=== PATIENT | female | born 1985 | race Caucasian/White ===

== ENCOUNTER 2021-08-16 18:31 | Emergency (ER) | payer MEDICAID ==
[~2021-08-16] VITALS: Ht 165.1 cm; Wt 145.4 kg
[2021-08-16] MEDS ORDERED: hydrocortisone sod succ/PF 250mg/2ml inj. IV ONE (19:10)
[2021-08-16] MEDS ORDERED: hydrocortisone sod succ/PF 100mg/2ml inj. IV ONE (19:30)
[2021-08-16 20:49] LABS: ALANINE AMINOTRANSFERASE 18 U/L (12-78); ALBUMIN 3.4 G/DL (3.4-5.0); ALBUMIN/GLOBULIN RATIO 0.9 (1.1-1.5); ALKALINE PHOSPHATASE 90 IU/L (46-116); ANION GAP 11 (8-16); ASPARTATE AMINO TRANSFERASE 15 U/L (10-37); BASOPHILS # (AUTO) 0.1 X10'3 (0-0.2); BASOPHILS % (AUTO) 0.6 % (0-1); BILIRUBIN,TOTAL 0.2 MG/DL (0.1-1.0); BLOOD UREA NITROGEN 9 MG/DL (7-18); BUN/CREATININE RATIO 6.3 (6.6-38.0); CALCIUM 8.5 MG/DL (8.5-10.1); CHLORIDE 110 MMOL/L (99-107); CREATININE 1.43 MG/DL (0.40-0.90); EOSINOPHILS # (AUTO) 0.1 X10'3 (0-0.9); EOSINOPHILS % (AUTO) 1.5 % (0-6); GLUCOSE 102 MG/DL (70-104); HEMATOCRIT 36.5 % (35.0-45.0); HEMOGLOBIN 12.3 g/dl (12.0-16.0); LYMPHOCYTES # (AUTO) 4.1 X10'3 (1.1-4.8); LYMPHOCYTES % (AUTO) 48.2 % (21-51); MEAN CORPUSCULAR HEMOGLOBIN 28.2 PG (27.0-31.0); MEAN CORPUSCULAR HGB CONC 33.8 g/dL (33.0-36.5); MEAN CORPUSCULAR VOLUME 83.4 FL (78-98); MEAN PLATELET VOLUME 8.1 FL (7.4-10.4); MONOCYTES # (AUTO) 0.6 X10'3 (0-0.9); MONOCYTES % (AUTO) 6.8 % (2-12); NEUTROPHILS # (AUTO) 3.6 X10'3 (1.8-7.7); NEUTROPHILS % (AUTO) 42.9 % (42-75); PLATELET COUNT 270 X10'3 (140-440); POTASSIUM 3.6 MMOL/L (3.5-5.1); RED BLOOD COUNT 4.37 X10'6 (4.20-5.60); RED CELL DISTRIBUTION WIDTH 15.3 % (11.5-14.5); SODIUM 145 MMOL/L (135-145); TOTAL CARBON DIOXIDE 24.5 MMOL/L (24-32); TOTAL PROTEIN 7.3 G/DL (6.4-8.2); WHITE BLOOD COUNT 8.4 X10'3 (4.5-11.0); eGFR 41 ML/MIN
[2021-08-16 21:36] VITALS: BP 140/81
[2021-08-16] MEDS ORDERED: iohexol 300mg/ml 100ml inj. ONE (22:36)
[2021-08-16] MEDS ORDERED: morphine 4 MG/ML inj SYRINge IV ONE (22:50)
[2021-08-16] MEDS ORDERED: ondansetron/PF 4mg/2ml inj IV ONE (22:50)
[2021-08-16] MEDS ORDERED: normal saline 1000ml 1,000 ML IV ONE (22:55)
[2021-08-17] MEDS ORDERED: ONDA4TAB6 PO (00:12)
== END 2021-08-17 00:42 | disposition home or self-care (01) ==
LOC: ER 18:32
DX: B34.9 Viral infection, unspecified (principal); Z20.822 Contact with and (suspected) exposure to COVID-19; E27.1 Primary adrenocortical insufficiency; Z88.8 Allergy status to other drugs, medicaments and biological substances; Z79.899 Other long term (current) drug therapy
CPT/HCPCS: 36415; 71045; 74177; 80053; 82533; 82948; 83605; 84145; 85025; 87635; 96361; 96374; 96375; 99285; C9803; J1720; J2270; J2405; J7030; Q9967

== ENCOUNTER 2021-08-20 12:51 | Emergency (ER) | payer MEDICARE, MEDICAID ==
[~2021-08-20] VITALS: Ht 175.3 cm; Wt 145.4 kg
[~2021-08-20 12:51] MED LIST: ONDA4TAB6 PO
[2021-08-20] MEDS ORDERED: morphine 4 MG/ML inj SYRINge IV ONE ×3 (14:25→19:15)
[2021-08-20] MEDS ORDERED: normal saline 1000ml 1,000 ML IV ONE (14:25)
[2021-08-20] MEDS ORDERED: iohexol 300mg/ml 100ml inj. ONE (14:49)
[2021-08-20 15:13] LABS: BASOPHILS % (AUTO) 0.4 % (0-1); EOSINOPHILS # (AUTO) 0.1 X10'3 (0-0.9); EOSINOPHILS % (AUTO) 0.5 % (0-6); HEMATOCRIT 38.6 % (35.0-45.0); HEMOGLOBIN 12.6 g/dl (12.0-16.0); LYMPHOCYTES # (AUTO) 2.1 X10'3 (1.1-4.8); LYMPHOCYTES % (AUTO) 19.4 % (21-51); MEAN CORPUSCULAR HEMOGLOBIN 26.8 PG (27.0-31.0); MEAN CORPUSCULAR HGB CONC 32.6 g/dL (33.0-36.5); MEAN CORPUSCULAR VOLUME 82.1 FL (78-98); MEAN PLATELET VOLUME 8.1 FL (7.4-10.4); MONOCYTES # (AUTO) 0.5 X10'3 (0-0.9); MONOCYTES % (AUTO) 4.4 % (2-12); NEUTROPHILS # (AUTO) 8.3 X10'3 (1.8-7.7); NEUTROPHILS % (AUTO) 75.3 % (42-75); PLATELET COUNT 269 X10'3 (140-440); RED BLOOD COUNT 4.71 X10'6 (4.20-5.60); RED CELL DISTRIBUTION WIDTH 15.1 % (11.5-14.5)
[2021-08-20 15:21] LABS: ALANINE AMINOTRANSFERASE 12 U/L (12-78); ALBUMIN 3.4 G/DL (3.4-5.0); ALBUMIN/GLOBULIN RATIO 0.9 (1.1-1.5); ALKALINE PHOSPHATASE 84 IU/L (46-116); ANION GAP 8 (8-16); ASPARTATE AMINO TRANSFERASE 10 U/L (10-37); BILIRUBIN,DIRECT 0.1 MG/DL (0-0.3); BILIRUBIN,TOTAL 0.3 MG/DL (0.1-1.0); BLOOD UREA NITROGEN 12 MG/DL (7-18); BUN/CREATININE RATIO 9.1 (6.6-38.0); CALCIUM 8.5 MG/DL (8.5-10.1); CHLORIDE 106 MMOL/L (99-107); CREATININE 1.32 MG/DL (0.40-0.90); GLUCOSE 112 MG/DL (70-104); LIPASE 77 U/L (73-393); POTASSIUM 3.8 MMOL/L (3.5-5.1); SODIUM 136 MMOL/L (135-145); TOTAL CARBON DIOXIDE 21.6 MMOL/L (24-32); TOTAL PROTEIN 7.3 G/DL (6.4-8.2); eGFR 45 ML/MIN
[2021-08-20] MEDS ORDERED: dexamethasone sod phosphate 10mg/ml inj IV STA (15:45)
[2021-08-20] MEDS ORDERED: ondansetron/PF 4mg/2ml inj IV ONE (17:55)
[2021-08-20 20:15] LABS: URINE HCG NEGATIVE (NEG)
[2021-08-20 21:05] LABS: CLARITY,URINE CLEAR (Clear); COLOR,URINE STRAW (Yellow); PH,URINE 7.5 (4.8-8.0); UA COLLECTION TYPE CLN CATCH MIDSTREAM
[2021-08-20 21:06] LABS: GLUCOSE, URINE NEGATIVE (Neg); KETONES,URINE NEGATIVE (Neg); LEUKOCYTE ESTERASE ,URINE NEGATIVE (Neg); NITRITES, URINE NEGATIVE (Neg); OCCULT BLOOD,URINE NEGATIVE (Neg); PROTEIN,URINE NEGATIVE (Neg); UROBILINOGEN,URINE 0.2 E.U/dL (0.2-1.0)
[2021-08-20] MEDS ORDERED: PROC-8 PO (21:12)
[2021-08-20] MEDS ORDERED: SUCR1TAB PO (21:12)
[2021-08-20 21:36] VITALS: BP 141/94
== END 2021-08-20 21:37 | disposition home or self-care (01) ==
LOC: ER 12:51
DX: R10.13 Epigastric pain (principal); R11.10 Vomiting, unspecified; Z88.8 Allergy status to other drugs, medicaments and biological substances; Z79.899 Other long term (current) drug therapy
CPT/HCPCS: 36415; 80048; 80076; 81003; 81025; 83690; 85025; 96361; 96374; 96375; 96376; 99284; J1100; J2270; J2405; J7030; Q9967

== ENCOUNTER 2022-03-28 14:02 | Inpatient (IN) | payer MEDICARE, MEDICAID ==
[~2022-03-28] VITALS: Ht 175.3 cm; Wt 157.1 kg
[~2022-03-28 14:02] MED LIST changes: +PROC-8 PO; +SUCR1TAB PO
[2022-03-28] MEDS ORDERED: normal saline 1000ML IV soln IVB ONE ×2 (14:25→19:20)
[2022-03-28] MEDS ORDERED: ondansetron/PF 4mg/2ml inj IV ONE ×2 (14:30→18:00)
[2022-03-28 14:57] LABS: BASOPHILS # (AUTO) 0.1 X10'3 (0-0.2); BASOPHILS % (AUTO) 0.5 % (0-1); EOSINOPHILS % (AUTO) 0.2 % (0-6); HEMATOCRIT 37.6 % (35.0-45.0); LYMPHOCYTES # (AUTO) 2.5 X10'3 (1.1-4.8); LYMPHOCYTES % (AUTO) 19.7 % (21-51); MEAN CORPUSCULAR HEMOGLOBIN 25.3 PG (27.0-31.0); MEAN PLATELET VOLUME 8.1 FL (7.4-10.4); MONOCYTES # (AUTO) 0.5 X10'3 (0-0.9); MONOCYTES % (AUTO) 4.1 % (2-12); NEUTROPHILS # (AUTO) 9.7 X10'3 (1.8-7.7); NEUTROPHILS % (AUTO) 75.5 % (42-75); PLATELET COUNT 305 X10'3 (140-440); RED BLOOD COUNT 4.76 X10'6 (4.20-5.60); RED CELL DISTRIBUTION WIDTH 16.1 % (11.5-14.5); WHITE BLOOD COUNT 12.8 X10'3 (4.5-11.0)
[2022-03-28 15:10] LABS: ALANINE AMINOTRANSFERASE 10 U/L (12-78); ALBUMIN 3.8 G/DL (3.4-5.0); ALKALINE PHOSPHATASE 86 IU/L (46-116); ANION GAP 9 (8-16); ASPARTATE AMINO TRANSFERASE 14 U/L (10-37); BILIRUBIN,TOTAL 0.3 MG/DL (0.1-1.0); BLOOD UREA NITROGEN 11 MG/DL (7-18); BUN/CREATININE RATIO 10.2 (6.6-38.0); CALCIUM 9.1 MG/DL (8.5-10.1); CHLORIDE 106 MMOL/L (99-107); CREATININE 1.08 MG/DL (0.40-0.90); GLUCOSE 113 MG/DL (70-104); POTASSIUM 4.1 MMOL/L (3.5-5.1); SODIUM 139 MMOL/L (135-145); TOTAL PROTEIN 7.6 G/DL (6.4-8.2); eGFR 56 ML/MIN
[2022-03-28] MEDS ORDERED: niCARdipine I.V. 50 MG in normal saline 250ml IV soln 230 ML IV SCH (17:35)
--- NOTE | 2022-03-28 18:09 | NUR ---
USED STRAIGHT CATHETER TO OBTAIN URINE SAMPLE. NO URINE OUTPUT. EDMD CHANEL MADE AWARE AND ANOTHER LITER OF NORMAL SALINE HUNG DUE TO DEHYDRATION PER CHANEL.
[2022-03-28] MEDS: morphine 4 MG/ML inj SYRINge IV PRN ×2 (18:38→20:09)
--- NOTE | 2022-03-28 18:40 | NUR ---
URINE SAMPLE OBTAINED. CHANGED BED SHEETS BEDDING BECAME SOILED WITH URINE. PT NOW IN NEW CLEAN SHEETS AND PROVIDED NEW WARM BLANKET.
[2022-03-28 18:50] LABS: CLARITY,URINE CLEAR (Clear); COLOR,URINE YELLOW (Yellow); GLUCOSE, URINE NEGATIVE (Neg); KETONES,URINE NEGATIVE (Neg); LEUKOCYTE ESTERASE ,URINE NEGATIVE (Neg); NITRITES, URINE NEGATIVE (Neg); OCCULT BLOOD,URINE NEGATIVE (Neg); PH,URINE 6.5 (4.8-8.0); PROTEIN,URINE NEGATIVE (Neg); UROBILINOGEN,URINE 0.2 E.U/dL (0.2-1.0)
[2022-03-28 18:55] LABS: UA COLLECTION TYPE STRAIGHT CATH
[2022-03-28] MEDS ORDERED: hydrocortisone sod succ/PF 250mg/2ml inj. IV ONE (19:20)
--- NOTE | 2022-03-28 19:48 | NUR ---
CALLED PHARMACY FOR STEROID ORDER. THEY ARE PREPARING IT.
[2022-03-28] MEDS ORDERED: hydrocortisone sod succ/PF 100mg/2ml inj. IV ONE (19:50)
--- NOTE | 2022-03-28 20:03 | NUR ---
WALKED TO PHARMACY TO PHYSICIAN RECRUITER STEROID. PHARMACY THEN SAID THEY DID NOT NEED TO PREPARE IT AND "FIXED THE OMNICELL" SO I CAN DRAW IT.
[2022-03-28] MEDS ORDERED: FERR325T7 PO (21:20)
[2022-03-28] MEDS ORDERED: ROSU10TA28 PO (21:20)
[2022-03-28] MEDS ORDERED: LEVO-144 PO (21:20)
[2022-03-28] MEDS ORDERED: PREG150C46 PO (21:20)
[2022-03-28] MEDS ORDERED: PANT40TA54 PO (21:20)
[2022-03-28] MEDS ORDERED: CYCL5TAB PO (21:20)
[2022-03-28] MEDS ORDERED: BUSP15TA3 PO (21:20)
[2022-03-28] MEDS ORDERED: HYDR-4318 PO (21:20)
[2022-03-28] MEDS ORDERED: MIRA25TA PO (21:20)
[2022-03-28] MEDS ORDERED: HYDROCORTISONE PO (21:20)
[2022-03-28] MEDS ORDERED: HYDR-3686 PO (21:20)
[2022-03-28] MEDS ORDERED: DULO30CA52 PO (21:20)
[2022-03-28] MEDS ORDERED: ERGO500093 PO (21:20)
[2022-03-28] MEDS ORDERED: OMEG10006 PO (21:20)
[2022-03-28] MEDS ORDERED: PRAZ2CAP2 PO (21:20)
[2022-03-28] MEDS ORDERED: TRAZ-256 PO (21:20)
[2022-03-28] MEDS ORDERED: OXCA150T14 PO (21:20)
--- NOTE | 2022-03-28 23:25 | NUR ---
ATTEMPTED TO GIVE REPORT TO FLOOR RN. RN BUSY AND WILL CALL BACK IN 10 MINUTES.
--- NOTE | 2022-03-28 23:59 | NUR ---
Received report from ALEXANDRA Pepper. Patient arrived via gurneywith a bag of belongings, and her purse. Belongings included cell phone and laundry housekeeper, clothes were in the belongings bag, green sweater came up with patient. Patient is crying and complains of pain 9.10 on the pain scale. Pain will be addressed,
--- NOTE | 2022-03-29 00:26 | NUR ---
: [id number] MESSAGE: [id number]: Long, Germaine. Patient is crying, I do not have any medication orders. She is in pain, and nauseas. Also Do you want fluid running? Tashi 2084
[2022-03-29] MEDS ORDERED: magnesium Cl slow-release 64mg tablet PO PRN (00:30)
[2022-03-29] MEDS ORDERED: POTASSIUM BICARB 20meq eff tab 20 MEQ TABLET.EFF PO PRN ×2 (00:30)
[2022-03-29] MEDS ORDERED: magnesium 2GM in 50ml NS 50 ML IV PRN (00:30)
[2022-03-29] MEDS ORDERED: acetaminophen 325mg tablet PO PRN (00:30)
[2022-03-29] MEDS ORDERED: magnesium 4gm in 100ml NS 100 ML IV PRN (00:30)
[2022-03-29 00:39] VITALS: BP 140/67
[2022-03-29] MEDS ORDERED: TRAZ-251 PO (00:49)
[2022-03-29] MEDS ORDERED: HYDR-4318 PO (00:49)
[2022-03-29] MEDS: ondansetron/PF 4mg/2ml inj IV PRN ×4 (00:59→19:34)
[2022-03-29] MEDS: normal saline 1000ml 1,000 ML IV SCH ×3 (01:02→21:19)
[2022-03-29] MEDS: HYDROcodone/acetaminophen 5mg/325mg tablet PO PRN ×5 (01:08→21:18)
[2022-03-29 06:00] VITALS: BP 166/68
--- NOTE | 2022-03-29 06:18 | NUR ---
Problems reprioritized. Patient report given, questions answered & plan of care reviewed with ALEXANDRA Dillard. Patient is wanting to be discharged.
[2022-03-29 06:46] LABS: MAGNESIUM 2.2 MG/DL (1.5-2.4); POTASSIUM 4.2 MMOL/L (3.5-5.1)
[2022-03-29] MEDS: levoTHYROXINE 25mcg tablet PO SCH (07:47)
[2022-03-29] MEDS: OMEGA-3/DHA/EPA/FISH OIL 1 EACH CAPSULE.DR PO SCH (07:47)
[2022-03-29] MEDS: ferrous sulfate 325mg tablet PO SCH ×2 (07:48→19:35)
[2022-03-29] MEDS: pregabalin 75mg capsule PO SCH ×3 (07:48→21:17)
[2022-03-29] MEDS: docusate sod 100mg capsule PO SCH ×2 (07:49→19:35)
[2022-03-29] MEDS: busPIRone 15mg tablet PO SCH ×3 (07:49→20:40)
[2022-03-29] MEDS: cyclobenzaprine 10mg tablet PO SCH ×2 (07:49→19:35)
[2022-03-29] MEDS: atorvastatin 20mg tablet PO SCH (07:49)
[2022-03-29] MEDS: oxcarbazepine 150mg tablet PO SCH ×2 (07:49→19:35)
[2022-03-29] MEDS: pantoprazole 40mg Tablet.DR PO SCH ×2 (07:50→19:35)
[2022-03-29] MEDS: hydrOXYzine 25 MG tablet PO SCH (07:50)
[2022-03-29] MEDS: mirabegron 25mg ER tablet PO SCH (07:55)
[2022-03-29] MEDS: K and/or MAG REPLACEMENT MC SCH ×2 (08:00→19:06)
[2022-03-29 10:00] VITALS: BP 132/80
--- NOTE | 2022-03-29 13:18 | NUR ---
PAGER ID: [phone] MESSAGE: JULIO C BARRAGAN [id number] PATIENT ASKING TO HAVE A VISIT WITH YOU TO ASK SOME QUESTIONS AND ADDRESS SOME CONCERNS THANK YOU, MELI MORRIS
--- NOTE | 2022-03-29 13:50 | NUR ---
PAGER ID: [phone] MESSAGE: JULIO C BARRAGAN [id number] PATIENT REQUESTING TO HAVE A VISIT FROM YOU, HAS QUESTIONS AND CONCERNS THANK YOU, MELI MORRIS
[2022-03-29 18:00] VITALS: BP 111/62
[2022-03-29] MEDS: duloxetine 30mg CAPSULE.DR PO SCH (20:40)
[2022-03-29] MEDS: prazosin 1mg capsule PO SCH (20:40)
[2022-03-29] MEDS: traZODone 50mg tablet PO SCH (20:40)
[2022-03-29 22:00] VITALS: BP 119/65
[2022-03-30] MEDS: HYDROcodone/acetaminophen 5mg/325mg tablet PO PRN ×5 (01:53→20:21)
[2022-03-30] MEDS: ondansetron/PF 4mg/2ml inj IV PRN ×3 (01:53→14:14)
[2022-03-30 06:25] LABS: BASOPHILS # (AUTO) 0.1 X10'3 (0-0.2); BASOPHILS % (AUTO) 0.9 % (0-1); EOSINOPHILS # (AUTO) 0.1 X10'3 (0-0.9); EOSINOPHILS % (AUTO) 1.4 % (0-6); HEMATOCRIT 30.5 % (35.0-45.0); HEMOGLOBIN 9.8 g/dl (12.0-16.0); LYMPHOCYTES # (AUTO) 3.6 X10'3 (1.1-4.8); LYMPHOCYTES % (AUTO) 48.5 % (21-51); MEAN CORPUSCULAR HEMOGLOBIN 25.5 PG (27.0-31.0); MEAN CORPUSCULAR VOLUME 79.7 FL (78-98); MEAN PLATELET VOLUME 8.2 FL (7.4-10.4); MONOCYTES # (AUTO) 0.5 X10'3 (0-0.9); MONOCYTES % (AUTO) 6.3 % (2-12); NEUTROPHILS # (AUTO) 3.2 X10'3 (1.8-7.7); NEUTROPHILS % (AUTO) 42.9 % (42-75); PLATELET COUNT 217 X10'3 (140-440); RED BLOOD COUNT 3.83 X10'6 (4.20-5.60); WHITE BLOOD COUNT 7.5 X10'3 (4.5-11.0)
[2022-03-30 06:30] VITALS: BP 118/64
[2022-03-30 06:30] LABS: ALBUMIN 2.9 G/DL (3.4-5.0); ANION GAP 6 (8-16); BLOOD UREA NITROGEN 11 MG/DL (7-18); BUN/CREATININE RATIO 9.8 (6.6-38.0); CALCIUM 7.9 MG/DL (8.5-10.1); CHLORIDE 110 MMOL/L (99-107); CREATININE 1.12 MG/DL (0.40-0.90); GLUCOSE 97 MG/DL (70-104); SODIUM 141 MMOL/L (135-145); eGFR 54 ML/MIN
[2022-03-30] MEDS: normal saline 1000ml 1,000 ML IV SCH (07:35)
[2022-03-30] MEDS: cyclobenzaprine 10mg tablet PO SCH ×2 (07:36→20:18)
[2022-03-30] MEDS: oxcarbazepine 150mg tablet PO SCH ×2 (07:37→20:19)
[2022-03-30] MEDS: pregabalin 75mg capsule PO SCH ×3 (07:37→20:18)
[2022-03-30] MEDS: pantoprazole 40mg Tablet.DR PO SCH ×3 (07:37→20:18)
[2022-03-30] MEDS: OMEGA-3/DHA/EPA/FISH OIL 1 EACH CAPSULE.DR PO SCH (07:37)
[2022-03-30] MEDS: mirabegron 25mg ER tablet PO SCH (07:37)
[2022-03-30] MEDS: atorvastatin 20mg tablet PO SCH (07:38)
[2022-03-30] MEDS: ferrous sulfate 325mg tablet PO SCH ×2 (07:38→20:19)
[2022-03-30] MEDS: hydrOXYzine 25 MG tablet PO SCH (07:39)
[2022-03-30] MEDS: busPIRone 15mg tablet PO SCH ×3 (07:39→20:18)
[2022-03-30] MEDS: levoTHYROXINE 25mcg tablet PO SCH (07:39)
[2022-03-30] MEDS: docusate sod 100mg capsule PO SCH ×2 (07:39→20:18)
[2022-03-30] MEDS: K and/or MAG REPLACEMENT MC SCH ×2 (07:43→19:20)
[2022-03-30] MEDS ORDERED: hydrocortisone sod succ/PF 250mg/2ml inj. IV ONE (08:50)
[2022-03-30] MEDS ORDERED: hydrocortisone sod succ/PF 100mg/2ml inj. IV ONE (08:55)
[2022-03-30 10:00] VITALS: BP 121/73
[2022-03-30] MEDS: HYDROCORTISONE SOD SUCC IV SCH (10:27)
[2022-03-30] MEDS: NORMAL SALINE IV SCH (10:27)
[2022-03-30] MEDS: proCHLORperazine 10 MG/2 ml inj IV PRN ×2 (10:49→18:41)
--- NOTE | 2022-03-30 13:27 | NUR ---
messaged pharmacy multiple times regarding missing solu-cortef. was just now notified that this dosage is not carried.
--- NOTE | 2022-03-30 13:30 | NUR ---
PAGER ID: [phone] MESSAGE: [phone] Edith Alves: please call regarding solu-cortef loading dose. After asking for the missing med all day, pharmacist just now informed me that we do not carry a certain dose that's ordered. thanks, conrad [phone]
[2022-03-30 14:00] VITALS: BP 153/88
--- NOTE | 2022-03-30 17:43 | NUR ---
PAGER ID: [phone] MESSAGE: [id number] Edith Alves: patient has had a tubal ligation. does she still need a test? thanks, conrad [phone]
[2022-03-30 18:00] VITALS: BP 149/86
--- NOTE | 2022-03-30 18:13 | NUR ---
Problems reprioritized. Patient report given, questions answered & plan of care reviewed with ALEXANDRA Tristan.
[2022-03-30 19:57] LABS: H PYLORI ANTIBODY NEGATIVE (Neg)
[2022-03-30] MEDS: duloxetine 30mg CAPSULE.DR PO SCH (20:18)
[2022-03-30] MEDS: prazosin 1mg capsule PO SCH (20:18)
[2022-03-30] MEDS: traZODone 50mg tablet PO SCH (20:19)
[2022-03-30 22:00] VITALS: BP 137/80
[2022-03-30] MEDS ORDERED: LORazepam 0.5 MG tablet PO PRN (23:50)
--- NOTE | 2022-03-30 23:51 | NUR ---
Pt with c/o of increase feelings of being anxious and unable to fall asleep without fear of screaming in her sleep r/t history of night terrors when she was a kid. MD notified of this complaint with new order for one time dose of .5mg Ativan PO.
[2022-03-31] MEDS: ondansetron/PF 4mg/2ml inj IV PRN ×3 (00:12→17:08)
[2022-03-31] MEDS: HYDROcodone/acetaminophen 5mg/325mg tablet PO PRN ×4 (05:49→20:56)
[2022-03-31 06:30] VITALS: BP 124/74
[2022-03-31 07:21] LABS: EOSINOPHILS % (AUTO) 0.1 % (0-6); HEMATOCRIT 35.6 % (35.0-45.0); HEMOGLOBIN 11.4 g/dl (12.0-16.0); LYMPHOCYTES % (AUTO) 15.4 % (21-51); MEAN CORPUSCULAR HEMOGLOBIN 25.6 PG (27.0-31.0); MEAN CORPUSCULAR HGB CONC 32.1 g/dL (33.0-36.5); MEAN CORPUSCULAR VOLUME 79.7 FL (78-98); MEAN PLATELET VOLUME 8.1 FL (7.4-10.4); MONOCYTES % (AUTO) 3.8 % (2-12); NEUTROPHILS % (AUTO) 80.1 % (42-75); PLATELET COUNT 258 X10'3 (140-440); RED BLOOD COUNT 4.46 X10'6 (4.20-5.60); RED CELL DISTRIBUTION WIDTH 16.3 % (11.5-14.5); WHITE BLOOD COUNT 12.5 X10'3 (4.5-11.0)
[2022-03-31 07:22] LABS: BASOPHILS # (AUTO) 0.1 X10'3 (0-0.2); BASOPHILS % (AUTO) 0.6 % (0-1); LYMPHOCYTES # (AUTO) 1.9 X10'3 (1.1-4.8); MONOCYTES # (AUTO) 0.5 X10'3 (0-0.9)
[2022-03-31 07:46] LABS: ALBUMIN 3.3 G/DL (3.4-5.0); ANION GAP 6 (8-16); BLOOD UREA NITROGEN 10 MG/DL (7-18); BUN/CREATININE RATIO 8.9 (6.6-38.0); CALCIUM 8.5 MG/DL (8.5-10.1); CHLORIDE 109 MMOL/L (99-107); CREATININE 1.12 MG/DL (0.40-0.90); GLUCOSE 129 MG/DL (70-104); POTASSIUM 3.9 MMOL/L (3.5-5.1); SODIUM 141 MMOL/L (135-145); TOTAL CARBON DIOXIDE 26.1 MMOL/L (24-32); eGFR 54 ML/MIN
[2022-03-31] MEDS: K and/or MAG REPLACEMENT MC SCH ×2 (08:00→20:00)
[2022-03-31] MEDS: HYDROCORTISONE SOD SUCC IV SCH (08:35)
[2022-03-31] MEDS: NORMAL SALINE IV SCH (08:35)
[2022-03-31] MEDS: OMEGA-3/DHA/EPA/FISH OIL 1 EACH CAPSULE.DR PO SCH (08:36)
[2022-03-31] MEDS: levoTHYROXINE 25mcg tablet PO SCH (08:36)
[2022-03-31] MEDS: docusate sod 100mg capsule PO SCH ×2 (08:36→20:04)
[2022-03-31] MEDS: ferrous sulfate 325mg tablet PO SCH ×2 (08:36→20:04)
[2022-03-31] MEDS: pantoprazole 40mg Tablet.DR PO SCH (08:36)
[2022-03-31] MEDS: busPIRone 15mg tablet PO SCH ×3 (08:36→20:04)
[2022-03-31] MEDS: pregabalin 75mg capsule PO SCH ×3 (08:37→20:04)
[2022-03-31] MEDS: mirabegron 25mg ER tablet PO SCH (08:37)
[2022-03-31] MEDS: hydrOXYzine 25 MG tablet PO SCH (08:37)
[2022-03-31] MEDS: cyclobenzaprine 10mg tablet PO SCH ×2 (08:37→20:05)
[2022-03-31] MEDS: atorvastatin 20mg tablet PO SCH (08:37)
[2022-03-31] MEDS: oxcarbazepine 150mg tablet PO SCH ×2 (08:37→20:04)
[2022-03-31 10:17] VITALS: BP 146/86
[2022-03-31] MEDS: proCHLORperazine 10 MG/2 ml inj IV PRN ×2 (10:37→18:44)
[2022-03-31] MEDS ORDERED: LORazepam 0.5 MG tablet PO PRN (12:20)
[2022-03-31] MEDS ORDERED: LORazepam 2 mg/ml vial IV PRN (12:20)
[2022-03-31] MEDS: cefTRIAXone 1g/NS 100ml IVPB 100 ML IV SCH (13:43)
--- NOTE | 2022-03-31 17:25 | NUR ---
patient voided in hat 100ml. post void residual is 65ml.
[2022-03-31 18:00] VITALS: BP 135/81
--- NOTE | 2022-03-31 18:10 | NUR ---
Problems reprioritized. Patient report given, questions answered & plan of care reviewed with ALEXANDRA Wray.
[2022-03-31] MEDS: prazosin 1mg capsule PO SCH (20:04)
[2022-03-31] MEDS: traZODone 50mg tablet PO SCH (20:04)
[2022-03-31] MEDS: duloxetine 30mg CAPSULE.DR PO SCH (20:04)
[2022-03-31 22:00] VITALS: BP 137/81
[2022-04-01] MEDS: proCHLORperazine 10 MG/2 ml inj IV PRN ×3 (03:43→17:18)
[2022-04-01] MEDS: HYDROcodone/acetaminophen 5mg/325mg tablet PO PRN ×4 (03:44→18:16)
[2022-04-01 05:00] VITALS: BP 141/83
[2022-04-01 06:02] LABS: BASOPHILS # (AUTO) 0.1 X10'3 (0-0.2); BASOPHILS % (AUTO) 0.6 % (0-1); EOSINOPHILS % (AUTO) 0.1 % (0-6); HEMATOCRIT 32.3 % (35.0-45.0); HEMOGLOBIN 10.4 g/dl (12.0-16.0); LYMPHOCYTES # (AUTO) 2.2 X10'3 (1.1-4.8); LYMPHOCYTES % (AUTO) 18.4 % (21-51); MEAN CORPUSCULAR HEMOGLOBIN 25.2 PG (27.0-31.0); MEAN CORPUSCULAR HGB CONC 32.1 g/dL (33.0-36.5); MEAN CORPUSCULAR VOLUME 78.5 FL (78-98); MEAN PLATELET VOLUME 8.5 FL (7.4-10.4); MONOCYTES # (AUTO) 0.6 X10'3 (0-0.9); MONOCYTES % (AUTO) 5.4 % (2-12); NEUTROPHILS # (AUTO) 8.9 X10'3 (1.8-7.7); NEUTROPHILS % (AUTO) 75.5 % (42-75); PLATELET COUNT 234 X10'3 (140-440); RED BLOOD COUNT 4.11 X10'6 (4.20-5.60); RED CELL DISTRIBUTION WIDTH 16.1 % (11.5-14.5); WHITE BLOOD COUNT 11.7 X10'3 (4.5-11.0)
[2022-04-01 06:09] LABS: ALBUMIN 3.1 G/DL (3.4-5.0); ANION GAP 9 (8-16); BLOOD UREA NITROGEN 14 MG/DL (7-18); BUN/CREATININE RATIO 13.9 (6.6-38.0); CALCIUM 8.3 MG/DL (8.5-10.1); CHLORIDE 106 MMOL/L (99-107); CREATININE 1.01 MG/DL (0.40-0.90); GLUCOSE 119 MG/DL (70-104); POTASSIUM 3.7 MMOL/L (3.5-5.1); SODIUM 142 MMOL/L (135-145); TOTAL CARBON DIOXIDE 26.8 MMOL/L (24-32); eGFR 61 ML/MIN
--- NOTE | 2022-04-01 06:10 | NUR ---
Patient in room [facility]TH[facility] 4010. I have received report from ALEXANDRA Wray and had the opportunity to ask questions and assume patient care.
--- NOTE | 2022-04-01 06:12 | NUR ---
Report given to Harper MORRIS
[2022-04-01] MEDS: K and/or MAG REPLACEMENT MC SCH ×2 (08:00→20:00)
[2022-04-01] MEDS: NORMAL SALINE IV SCH (09:08)
[2022-04-01] MEDS: HYDROCORTISONE SOD SUCC IV SCH (09:08)
[2022-04-01] MEDS: cefTRIAXone 1g/NS 100ml IVPB 100 ML IV SCH (09:09)
[2022-04-01 10:00] VITALS: BP 126/63
[2022-04-01] MEDS: levoTHYROXINE 25mcg tablet PO SCH (10:46)
[2022-04-01] MEDS: ferrous sulfate 325mg tablet PO SCH ×2 (10:46→20:13)
[2022-04-01] MEDS: oxcarbazepine 150mg tablet PO SCH ×2 (10:46→20:13)
[2022-04-01] MEDS: mirabegron 25mg ER tablet PO SCH (10:46)
[2022-04-01] MEDS: busPIRone 15mg tablet PO SCH ×3 (10:47→20:13)
[2022-04-01] MEDS: pantoprazole 40mg Tablet.DR PO SCH (10:47)
[2022-04-01] MEDS: hydrOXYzine 25 MG tablet PO SCH (10:47)
[2022-04-01] MEDS: docusate sod 100mg capsule PO SCH ×2 (10:47→20:13)
[2022-04-01] MEDS: pregabalin 75mg capsule PO SCH ×3 (10:47→20:14)
[2022-04-01] MEDS: atorvastatin 20mg tablet PO SCH (10:47)
[2022-04-01] MEDS: cyclobenzaprine 10mg tablet PO SCH ×2 (10:52→20:14)
[2022-04-01] MEDS: OMEGA-3/DHA/EPA/FISH OIL 1 EACH CAPSULE.DR PO SCH (10:53)
[2022-04-01] MEDS: metoclopramide 5 mg/ml inj IV PRN ×2 (12:55→20:17)
[2022-04-01] MEDS ORDERED: bisacodyl 10mg suppository rectal RC PRN (13:40)
[2022-04-01] MEDS ORDERED: bisacodyl 5mg tablet.DR PO PRN (13:40)
[2022-04-01] MEDS: magnesium hydroxide 30ml (MOM) UD suspension PO PRN (17:18)
[2022-04-01 18:00] VITALS: BP 134/71
--- NOTE | 2022-04-01 18:36 | NUR ---
Patient in room ORTHO 4010. I have received report from Harper MORRIS and had the opportunity to ask questions and assume patient care.
--- NOTE | 2022-04-01 18:36 | NUR ---
Problems reprioritized. Patient report given, questions answered & plan of care reviewed with ALEXANDRA Vogel.
[2022-04-01] MEDS: duloxetine 30mg CAPSULE.DR PO SCH (20:14)
[2022-04-01] MEDS: prazosin 1mg capsule PO SCH (20:14)
[2022-04-01] MEDS: traZODone 50mg tablet PO SCH (20:14)
[2022-04-01] MEDS ORDERED: psyllium seed 3.4 gm packet PO SCH (21:00)
[2022-04-01 22:00] VITALS: BP 121/62
[2022-04-02] MEDS: proCHLORperazine 10 MG/2 ml inj IV PRN ×2 (00:59→08:22)
[2022-04-02] MEDS: HYDROcodone/acetaminophen 5mg/325mg tablet PO PRN (01:03)
[2022-04-02] MEDS: metoclopramide 5 mg/ml inj IV PRN (05:51)
[2022-04-02 06:00] VITALS: BP 130/63
--- NOTE | 2022-04-02 06:00 | NUR ---
Problems reprioritized. Patient report given, questions answered & plan of care reviewed with Vanessa MORRIS.
[2022-04-02 06:06] LABS: BASOPHILS % (AUTO) 0.4 % (0-1); EOSINOPHILS % (AUTO) 0.2 % (0-6); HEMATOCRIT 31.9 % (35.0-45.0); HEMOGLOBIN 10.3 g/dl (12.0-16.0); LYMPHOCYTES # (AUTO) 2.3 X10'3 (1.1-4.8); LYMPHOCYTES % (AUTO) 21.7 % (21-51); MEAN CORPUSCULAR HEMOGLOBIN 25.5 PG (27.0-31.0); MEAN CORPUSCULAR HGB CONC 32.3 g/dL (33.0-36.5); MEAN CORPUSCULAR VOLUME 78.8 FL (78-98); MEAN PLATELET VOLUME 8.6 FL (7.4-10.4); MONOCYTES # (AUTO) 0.6 X10'3 (0-0.9); NEUTROPHILS # (AUTO) 7.6 X10'3 (1.8-7.7); NEUTROPHILS % (AUTO) 71.7 % (42-75); PLATELET COUNT 217 X10'3 (140-440); RED BLOOD COUNT 4.04 X10'6 (4.20-5.60); RED CELL DISTRIBUTION WIDTH 16.4 % (11.5-14.5); WHITE BLOOD COUNT 10.5 X10'3 (4.5-11.0)
[2022-04-02 06:28] LABS: ALBUMIN 3.2 G/DL (3.4-5.0); ANION GAP 7 (8-16); BLOOD UREA NITROGEN 15 MG/DL (7-18); BUN/CREATININE RATIO 15.6 (6.6-38.0); CALCIUM 8.3 MG/DL (8.5-10.1); CHLORIDE 107 MMOL/L (99-107); CREATININE 0.96 MG/DL (0.40-0.90); GLUCOSE 121 MG/DL (70-104); POTASSIUM 3.7 MMOL/L (3.5-5.1); SODIUM 141 MMOL/L (135-145); TOTAL CARBON DIOXIDE 26.9 MMOL/L (24-32); eGFR 65 ML/MIN
[2022-04-02] MEDS: pregabalin 75mg capsule PO SCH (07:59)
[2022-04-02] MEDS: hydrOXYzine 25 MG tablet PO SCH (07:59)
[2022-04-02] MEDS: oxcarbazepine 150mg tablet PO SCH (07:59)
[2022-04-02] MEDS: atorvastatin 20mg tablet PO SCH (07:59)
[2022-04-02] MEDS: levoTHYROXINE 25mcg tablet PO SCH (08:00)
[2022-04-02] MEDS: K and/or MAG REPLACEMENT MC SCH (08:00)
[2022-04-02] MEDS: docusate sod 100mg capsule PO SCH (08:00)
[2022-04-02] MEDS: ferrous sulfate 325mg tablet PO SCH (08:00)
[2022-04-02] MEDS ORDERED: ergocalciferol (vit D2) capsule 50,000 UNITS (1,250mcg) CAPSULE PO SCH (08:00)
[2022-04-02] MEDS: OMEGA-3/DHA/EPA/FISH OIL 1 EACH CAPSULE.DR PO SCH (08:00)
[2022-04-02] MEDS: busPIRone 15mg tablet PO SCH (08:00)
[2022-04-02] MEDS: cefTRIAXone 1g/NS 100ml IVPB 100 ML IV SCH (08:00)
[2022-04-02] MEDS: pantoprazole 40mg Tablet.DR PO SCH (08:00)
[2022-04-02] MEDS: cyclobenzaprine 10mg tablet PO SCH (08:00)
[2022-04-02] MEDS: NORMAL SALINE IV SCH (08:01)
[2022-04-02] MEDS: HYDROCORTISONE SOD SUCC IV SCH (08:01)
[2022-04-02] MEDS: magnesium hydroxide 30ml (MOM) UD suspension PO PRN (08:01)
[2022-04-02] MEDS: mirabegron 25mg ER tablet PO SCH (08:22)
--- NOTE | 2022-04-02 08:31 | NUR ---
Initial: Pt admitted w/ [place] disease, KATH w/ CKD, and Nausea/constipation per EMR. Currently on Regular diet w/ avg intake 55% x 11 meals partially meeting needs. Pt could benefit from Ensure Enlive BID for additional calories/protein. Constipation may be affecting PO intake, LBM 03/27 receiving multiple bowel care meds. Will continue to monitor. Recs: 1. Continue Regular diet as tolerated 2. Ensure Enlive BIDBD; pending MD verification 3. Routine bowel care: 7 days constipation 4. Weekly wts Addendum: 04/02/22 at [address] Amended: Links added.
[2022-04-02 10:00] VITALS: BP 143/68
[2022-04-02] MEDS ORDERED: LEVO250T43 PO (10:40)
--- NOTE | 2022-04-02 12:09 | NUR ---
DISCHARGE NOTE: Discussed [id number] paperwork with pt. Reviewed continued medication and new medication with pt. Discussed possible ASE of antibiotic with pt. Pt. has still been nauseous this AM but has both Zofran and Reglan at home per pt. She has ambulated independently without a walker with no issues. IV DC'd, cannula intact, pressure bandage applied, no s/sx bleeding noted. Pt. gathering up belongings and her friend is downstairs waiting for her to take her home. She is aware to schedule f/u [facility]. with [facility] Sunday to see PCP in a week. Pt. is escorted downstairs.
[2022-04-02] MEDS ORDERED: lactose-reduced food (Ensure Enlive) - 237ml bottle PO SCH (17:30)
== END 2022-04-02 12:09 | disposition home or self-care (01) | DRG 643 ==
LOC: ER 14:03 → UNDOADMIN 20:27 → ED HOLD 20:27 → ORTHO 4S 03-29 00:07 → ED HOLD 03-29 00:40 → ORTHO 4S 03-29 00:40
PROVIDERS: ADMIT Internal Medicine; ATTEND Internal Medicine
DX: E27.2 Addisonian crisis (principal); N17.0 Acute kidney failure with tubular necrosis; Z68.43 Body mass index [BMI] 50.0-59.9, adult; Z20.822 Contact with and (suspected) exposure to COVID-19; E78.5 Hyperlipidemia, unspecified; E86.0 Dehydration; D72.829 Elevated white blood cell count, unspecified; E03.9 Hypothyroidism, unspecified; E66.01 Morbid (severe) obesity due to excess calories; F32.A Depression, unspecified; F41.9 Anxiety disorder, unspecified; R30.0 Dysuria; J45.909 Unspecified asthma, uncomplicated; K21.9 Gastro-esophageal reflux disease without esophagitis; K59.00 Constipation, unspecified; N18.9 Chronic kidney disease, unspecified; T38.0X5A Adverse effect of glucocorticoids and synthetic analogues, initial encounter; Z85.828 Personal history of other malignant neoplasm of skin; Z87.440 Personal history of urinary (tract) infections; Y92.89 Other specified places as the place of occurrence of the external cause; Z88.8 Allergy status to other drugs, medicaments and biological substances
CPT/HCPCS: 36415; 71045; 74176; 80048; 80053; 81003; 83605; 83735; 84132; 84145; 84443; 85025; 86677; 87040; 87081; 87502; 87503; 87635; 93005; 97161; 97530; 99285; C9803; G0378; J0696; J0780; J1720; J2270; J2405; J2765; J7030; Q0177

== ENCOUNTER 2023-10-04 00:23 | Outpatient (CLI) | payer MEDICARE, MEDICAID ==
[2023-10-04] VITALS (20 sets, daily range): BP systolic 97–175; BP diastolic 44–108; PULSE 78–143
[~2023-10-04 00:23] MED LIST changes: +BUSP15TA3 PO; +CYCL5TAB PO; +DULO30CA52 PO; +ERGO500093 PO; +FERR325T7 PO; +HYDR-3686 PO; +HYDR-4318 PO; +LEVO-144 PO; +MIRA25TA PO; +OMEG10006 PO; -ONDA4TAB6 PO; +OXCA150T14 PO; +PANT40TA54 PO; +PRAZ2CAP2 PO; +PREG150C47 PO; -PROC-8 PO; +ROSU10TA28 PO; -SUCR1TAB PO; +TRAZ-251 PO
== END 2023-10-04 23:59 | disposition home or self-care (01) ==
LOC: CARD DIAG 00:23
PROVIDERS: ATTEND Internal Medicine Interventional Cardiology
DX: R55 Syncope and collapse (principal)
CPT/HCPCS: 93660